=== PATIENT | male | born 1935 | race Caucasian/White ===

== ENCOUNTER → 2017-09-24 | Outpatient (CLI) | payer OTHER | LOC: FIMAGING 13:52 | PROVIDERS: ATTEND Specialist | DX: Z12.39 Encounter for other screening for malignant neoplasm of breast (principal); M85.89 Other specified disorders of bone density and structure, multiple sites ==

== ENCOUNTER 2018-05-30 08:07 | Emergency (ER) | payer OTHER ==
--- NOTE | 2018-05-30 08:45 | EDPHY ---
H & P Stated Complaint: R CALF PAIN SWOLLEN AND PAINFUL FOR SEVERAL WEEKS Time Seen by Provider: 05/30/18 08:40 HPI/ROS: CHIEF COMPLAINT: Right calf pain HISTORY OF PRESENT ILLNESS: The patient is an 82-year-old man who comes to the emergency department complaining of some mild pain in his right calf particular when climbing stairs. He thought that he had a pulled muscle. He denies any specific trauma or injury. This persisted however for the last 10 days any called his doctor who recommended he come here to be checked for DVT. He has not noticed any appreciable swelling. No fevers. No rash. He does not smoke. He does have a remote history of prostate cancer. He is not on blood thinners. REVIEW OF SYSTEMS: Constitutional: denies: chills, fever, recent illness, recent injury EENTM: denies: blurred vision, double vision, nose congestion Respiratory: denies: cough, shortness of breath Cardiac: denies: chest pain, irregular heart rate, lightheadedness, palpitations Gastrointestinal/Abdominal: denies: abdominal pain, diarrhea, nausea, vomiting, blood streaked stools Genitourinary: denies: dysuria, frequency, hematuria, pain Musculoskeletal: See HPI Skin: denies: lesions, rash, jaundice, bruising Neurological: denies: headache, numbness, paresthesia, tingling, dizziness, weakness Hematologic/Lymphatic: denies: blood clots, easy bleeding, easy bruising Immunologic/allergic: denies: HIV/AIDS, transplant EXAM: GENERAL: Well-appearing, well-nourished and in no acute distress. HEAD: Atraumatic, normocephalic. EYES: Pupils equal round and reactive to light, extraocular movements intact, sclera anicteric, conjunctiva are normal. ENT: TMs normal, nares patent, oropharynx clear without exudates. Moist mucous membranes. NECK: Normal range of motion, supple without lymphadenopathy or JVD. LUNGS: Breath sounds clear to auscultation bilaterally and equal. No wheezes rales or rhonchi. HEART: Regular rate and rhythm without murmurs, rubs or gallops. ABDOMEN: Soft, nontender, normoactive bowel sounds. No guarding, no rebound. No masses appreciated. BACK: No CVA tenderness, no spinal tenderness, step-offs or deformities EXTREMITIES: Mild pain to right lower calf posteriorly, no swelling or deformity. No tenderness. No erythema. Normal range of motion, no pitting or edema. No clubbing or cyanosis. NEUROLOGICAL: Cranial nerves II through XII grossly intact. Normal speech, normal gait. 5/5 strength, normal movement in all extremities, normal sensation PSYCH: Normal mood, normal affect. SKIN: Warm, dry, normal turgor, no visible rashes or lesions. Source: Patient Exam Limitations: No limitations - Personal History Current Tetanus Diphtheria and Acellular Pertussis (TDAP): Yes Tetanus Vaccine Date: < 10 YEARS - Medical/Surgical History Hx Asthma: No Hx Chronic Respiratory Disease: No Hx Diabetes: No Hx Cardiac Disease: No Hx Renal Disease: No Hx Cirrhosis: No Hx Alcoholism: No Hx HIV/AIDS: No Hx Splenectomy or Spleen Trauma: No Other PMH: HTN. PROSTATE CA - Family History Significant Family History: No pertinent family hx - Social History Smoking Status: Never smoked Alcohol Use: Sober Drug Use: None Constitutional: Initial Vital Signs Temperature (C) 36.4 C 05/30/18 08:09 Heart Rate 81 05/30/18 08:09 Respiratory Rate 16 05/30/18 08:09 Blood Pressure 140/79 H 05/30/18 08:09 O2 Sat (%) 94 05/30/18 08:09 O2 Delivery Mode Room Air Allergies/Adverse Reactions: codeine [Codeine] Allergy (Verified 05/30/18 08:13) Rash Home Medications: Medication Instructions Recorded Glucosamine/Chondroitin 2 each PO DAILY 11/20/12 [Glucosamine/Chondroitin (OTC)] Irbesartan/Hydrochlorothiazide 1 each PO DAILY 11/20/12 [Avalide 300-25 mg Tablet] Levothyroxine [Synthroid 50 mcg 50 mcg PO HS 11/20/12 (RX)] Multivitamins [Multivitamin (OTC)] 1 each PO DAILY 11/20/12 [place]-3 Fatty Acids [Fish Oil 1000 2,000 mg PO DAILY 11/20/12 mg (OTC)] Rosuvastatin Calcium [Crestor 40mg 40 mg PO DAILY 11/20/12 (RX)] Ubidecarenone [Coenzyme Q10] 200 mg PO DAILY 11/20/12 amLODIPine BESYLATE [Norvasc 10 mg 10 mg PO DAILY 11/20/12 (RX)] Saw [place] Fruit [Saw [place]] 450 mg PO DAILY 11/27/12 Flomax 05/30/18 Medical Decision Making - Diagnostics Imaging: Discussed imaging studies w/ mail caller Radiologist ED Course/Re-evaluation: 11:30 a.m. We discussed the ultrasound results. The patient is relieved. We discussed other possible causes of his pain. We discussed treatment of muscle strains and pulse. He declines further workup or testing at this time. He is eager to go home. Differential Diagnosis: Partial list of the Differential diagnosis considered include but were not limited to; contusion, strain, DVT and although unlikely based on the history and physical exam, I also considered infection, fracture. I discussed these differential diagnoses and the plan with the patient as well as the usual and expected course. The patient understands that the diagnosis is provisional and that in medicine we are not always correct and that further workup is often warranted. Usual and customary warnings were given. All of the patient's questions were answered. The patient was instructed to return to the emergency department should the symptoms at all worsen or return, otherwise to followup with the physician as we discussed. Departure - Departure Disposition: Home, Routine, Self-Care Clinical Impression: Muscle cramp right leg Condition: Fair Instructions: Leg Cramps (ED) Referrals: Phillip Vasquez DO [Primary Care Provider] - As per Instructions
[2018-05-30 11:43] VITALS: BP 150/90
== END 2018-05-30 11:43 | disposition home or self-care (01) ==
DX: R25.2 Cramp and spasm (principal); I10 Essential (primary) hypertension; Z85.46 Personal history of malignant neoplasm of prostate

== ENCOUNTER → 2019-01-16 | Outpatient (CLI) | payer OTHER | LOC: FIMAGING 10:25 | PROVIDERS: ATTEND Family Medicine | DX: R93.0 Abnormal findings on diagnostic imaging of skull and head, not elsewhere classified (principal); R29.810 Facial weakness ==